=== PATIENT | female | born 1955 | race Caucasian/White ===

== ENCOUNTER 2016-10-26 05:58 | Inpatient (IN) | payer BC ==
[~2016-10-26] VITALS: Ht 172.7 cm; Wt 97.5 kg
[~2016-10-26 05:58] MED LIST: ASPI1TAB69 PO; CELE20TA PO; LOSA50TA PO; MAGN400C PO; MAGN400T2 PO; METF500 PO; METF500T PO; OMEP40CA2 PO; ROSU40 PO; VITA2000 PO
[2016-10-26] MEDS ORDERED: LACTATED RINGER'S 1000 ML IV PRN (06:30)
[2016-10-26] MEDS ORDERED: METOPROLOL TARTRATE 25 MG TAB PO PRN (06:30)
[2016-10-26] MEDS ORDERED: SODIUM CHLORID 0.9% 500 ML IV PRN (06:30)
[2016-10-26] MEDS ORDERED: POVIDONE IODINE 5% (ANTISEPSIS KIT) 4 APPLICATIONS EACH NARE PRN (06:30)
[2016-10-26] MEDS ORDERED: CHLORHEXIDINE GLUCONATE 2 % 1 PACK (2 CLOTHS) TOPICAL PRN (06:30)
[2016-10-26] MEDS ORDERED: INSULIN HUMAN REGULAR 1,000 UNITS/10 ML VIAL SQ PRN (06:30)
[2016-10-26 06:46] VITALS: BP 117/64; PULSE 64; RESP 16; TEMP 98.1; O2SAT 97
[2016-10-26] MEDS ORDERED: ceFAZolin 2 GM PREMIX 50 ML ONE (06:56)
[2016-10-26] MEDS ORDERED: BUPIVACAINE/EPINEPHRINE 0.25% 50 ML VIAL ONE (06:59)
[2016-10-26] MEDS: ceFAZolin 2 GM PREMIX 50 ML IV SCH ×2 (07:03→18:19)
[2016-10-26] MEDS ORDERED: MIDAZOLAM HCL 2 MG/2 ML VIAL ONE (07:29)
[2016-10-26] MEDS ORDERED: FAMOTIDINE 20 MG/2 ML VIAL ONE (07:29)
[2016-10-26] MEDS ORDERED: IOHEXOL 350 MG/ML 50 ML BTL (for RAD DIAG) ONE (08:34)
--- NOTE | 2016-10-26 09:26 | HHI.PR ---
Immediate Post Op Note Procedure Date: Oct 26, 2016 Pre Op Diagnosis: (1) Abdominal pain (2) Nausea & vomiting Post Op Diagnosis: (1) Abdominal pain (2) Nausea & vomiting Surgeon: Cale Solares [facility] Assistant(s): staff Procedure: laparoscopic cholecystectomy with IOC Findings: IOC with air bubble, good filling Complications: none Specimen(s) removed: GB Estimated blood loss: 10ml Anesthesia: General, Local Drains: None Patient to: PACU Patient Condition: Good Cale Solares MD Oct 26, 2016 09:26
--- NOTE | 2016-10-26 09:29 | RADRPT ---
EXAM DATE/TIME: 10/26/2016 08:57 [facility] COMPARISON: CHEST SINGLE AP, July 04, 2016, 17:13. INDICATIONS : Obstruction. FLUORO TIME: 1.2 minutes IMAGE COUNT: 2 MEDICAL HISTORY : None. SURGICAL HISTORY : None. ENCOUNTER: Initial ACUITY: 1 day PAIN SCORE: Non-responsive. LOCATION: Right upper quadrant PROCEDURE: CHOLANGIOGRAM, OPERATIVE 1. Intraoperative cholangiogram. In the operating room, the cystic duct stump was injected and radiographs obtained. The examination demonstrates a punctate stone in the proximal common bile duct. This measures approxi mately 2 mm in size. The ampulla is patent. There is no evidence of extravasation. CONCLUSION: There is a 2 mm stone in the mid aspect of the common duct. Betito Patel MD on October 26, 2016 at 9:26 Board Certified Radiologist. This report was verified electronically.
[2016-10-26] MEDS ORDERED: DO NOT ADM ANY ANTICOAGULANT DRUGS PRN (09:30)
[2016-10-26] MEDS ORDERED: *morphine SULFATE 8 MG/ML PERIprocedure ONLY ONE ×2 (09:34→09:38)
[2016-10-26] MEDS ORDERED: fentaNYL CITRATE 250 MCG/5 ML AMP ONE (09:36)
[2016-10-26] MEDS ORDERED: ACETAMINOPHEN/HYDROcodone 325 MG/5 MG TAB ONE (11:08)
[2016-10-26] MEDS ORDERED: ACETAMINOPHEN/HYDROcodone 325 MG/5 MG TAB PO ONE ×2 (11:15→14:00)
[2016-10-26] MEDS ORDERED: ACETAMINOPHEN 1000 MG/100 ML VIAL IV ONE (12:00)
[2016-10-26] MEDS ORDERED: NEOSTIGMINE 3 MG/3 ML SYR IV ONE ×2 (12:00→13:51)
[2016-10-26] MEDS ORDERED: ePHEDrine/NS 25 MG/5 ML SYR IV ONE (13:50)
[2016-10-26] MEDS ORDERED: PROPOFOL 200 MG/20 ML AMP IV ONE (13:50)
[2016-10-26] MEDS ORDERED: ONDANSETRON HCL 4 MG/2 ML VIAL IV PUSH ONE (13:51)
[2016-10-26] MEDS ORDERED: LACTATED RINGER'S 1000 ML INJ 1,000 ML IV ONE (13:51)
[2016-10-26] MEDS ORDERED: KETOROLAC TROMETHAMINE 60 MG/2 ML (IM) VIAL IM ONE (13:51)
[2016-10-26] MEDS ORDERED: LACTATED RINGER'S 1000 ML INJ 500 ML IV ONE (14:00)
[2016-10-26] MEDS: SODIUM CHLOR 0.9% 1000 ML INJ 1,000 ML IV SCH (14:35)
[2016-10-26] MEDS ORDERED: ACETAMINOPHEN/HYDROcodone 325 MG/5 MG TAB PO PRN (17:45)
[2016-10-26] MEDS: ACETAMINOPHEN/HYDROcodone 325 MG/5 MG TAB PO PRN ×2 (17:50→22:01)
--- NOTE | 2016-10-26 19:40 | HHI.PR ---
Subjective Subjective Notes patient feels better, was feeling weak all week Objective Vitals/I&O Vital Signs Date Time Temp Pulse Resp B/P Pulse Ox O2 Delivery O2 Flow Rate FiO2 10/26/16 18:34 18 10/26/16 16:30 97.9 70 94/59 97 10/26/16 15:35 Room Air 10/26/16 12:00 1 Cardiovascular: Regular Lungs: Clear Abdomen: Non-distended, Post-op tenderness Extremities: No edema, Perfused A/P Assessment and Plan 61yo female s/p lap xander, stable. had some low BP after surgery, felt weak, placed in obs. will check HH in AM before DC. Cale Solares MD Oct 26, 2016 19:40
[2016-10-26] MEDS ORDERED: ZOLPIDEM TARTRATE 5 MG TAB PO PRN (19:45)
[2016-10-26] MEDS ORDERED: SODIUM CHLORIDE 0.9% FLUSH 10 ML FLUSH IV FLUSH PRN (19:45)
[2016-10-26] MEDS ORDERED: ONDANSETRON HCL 4 MG/2 ML VIAL IV PRN (19:45)
[2016-10-26] MEDS ORDERED: Post-op Orders (for Pharmacy) MISC XX ONE (19:45)
[2016-10-26] MEDS ORDERED: diphenhydrAMINE HCL 25 MG CAP PO PRN (19:45)
[2016-10-26 20:00] VITALS: BP 101/56; PULSE 70; RESP 20; TEMP 96.4; O2SAT 95
[2016-10-26] MEDS: SODIUM CHLORIDE 0.9% FLUSH 10 ML FLUSH IV FLUSH SCH (20:12)
[2016-10-27] VITALS (9 sets, daily range): BP systolic 88–129; BP diastolic 50–60; PULSE 66–100; RESP 16–21; TEMP 96.8–98.4; O2SAT 92–99
[2016-10-27] MEDS: SODIUM CHLOR 0.9% 1000 ML INJ 1,000 ML IV SCH ×3 (00:08→20:00)
[2016-10-27] MEDS: ACETAMINOPHEN/HYDROcodone 325 MG/5 MG TAB PO PRN ×4 (04:10→18:31)
[2016-10-27] MEDS: SODIUM CHLORIDE 0.9% FLUSH 10 ML FLUSH IV FLUSH SCH ×2 (08:59→20:41)
--- NOTE | 2016-10-27 09:26 | HHI.PR ---
Subjective Subjective Notes RUQ pain, no other c/o Objective Vitals/I&O Vital Signs Date Time Temp Pulse Resp B/P Pulse Ox O2 Delivery O2 Flow Rate FiO2 10/27/16 05:10 20 10/27/16 04:00 97.0 82 100/55 97 10/26/16 15:35 Room Air 10/26/16 12:00 1 Labs Laboratory Tests Test 10/27/16 05:39 Hemoglobin 7.6 Cardiovascular: Regular Abdomen: Non-distended, Post-op tenderness Extremities: No edema, Perfused A/P Assessment and Plan 61yo female s/p lap xander, VSS. HH low, possible self limited surgical bleed. will follow HH, check CT scan today. will need to stay inpatient. Cale Solares MD Oct 27, 2016 09:26
[2016-10-27] MEDS: HYDROmorphone HCL PF 1 MG/ML VIAL IV PRN ×2 (09:59→20:40)
[2016-10-27] MEDS ORDERED: DIATRIZOATE MEGLUM/DIATRIZOATE SOD 9 ML CUP PO ONE (10:00)
--- NOTE | 2016-10-27 12:21 | RADRPT ---
EXAM DATE/TIME: 10/27/2016 11:57 [facility] COMPARISON: No previous studies available for comparison. INDICATIONS : Increased right upper quadrant pain following cholecystectomy. ORAL CONTRAST: Prescribed oral contrast ingested. RADIATION DOSE: 15.29 CTDIvol (mGy) MEDICAL HISTORY : Chronic obstructive pulmonary disease. Carcinoma, lung. Gastroesophageal reflux disease. SURGICAL HISTORY : Cholecystectomy. Fusion, lumbar. ENCOUNTER: Initial ACUITY: 1 day PAIN SCALE: 6/10 LOCATION: Right upper quadrant TECHNIQUE: Volumetric scanning of the abdomen and pelvis was performed. Using automated exposure control and adjustment of the mA and/or kV according to patient size, radiation dose was kept as low as reasonably achievable to obtain optimal diagnostic quality images. FINDINGS: LOWER LUNGS: There are new small bilateral pleural effusions and left basilar atelectasis/consoli dation. LIVER: The liver demonstrates normal morphology without evidence of biliary air. The patient is s tatus post recent cholecystectomy. There is fluid surrounding the right lobe of the liver displacing the right hemidiaphragm superiorly. Fluid tracks along the inferior right lobe and down the right par acolic gutter pooling within the dependent portion of the pelvis. Additional fluid is identified with in the lower left paracolic gutter. SPLEEN: Normal size without lesion. PANCREAS: Within normal limits. KIDNEYS: Normal in size and shape. There is no mass, stone, or hydronephrosis. ADRENAL GLANDS: Within normal limits. VASCULAR: There is no aortic aneurysm. Atherosclerosis. BOWEL/MESENTERY: Sigmoid diverticulosis. Stomach and small bowel are unremarkable. ABDOMINAL WALL: Intact. There are areas of subcutaneous air overlying the left midlung pelvis and right flank likely site of recent ports. RETROPERITONEUM: There is no lymphadenopathy. BLADDER: No wall thickening or mass. REPRODUCTIVE: Within normal limits. INGUINAL: There is no lymphadenopathy or hernia. MUSCULOSKELETAL: Within normal limits for patient age. CONCLUSION: Significantly abnormal exam with a large amount of free fluid identified within the a bdomen, pelvis and surrounding the right lobe of the liver with new small pleural effusions and left basilar airspace consolidation. Given the patient's recent cholecystectomy this is concerning for a b ile leak. Delicia Garber MD on October 27, 2016 at 12:14 Board Certified Radiologist. This report was verified electronically.
[2016-10-27] MEDS ORDERED: SODIUM CHLORID 0.9% 500 ML INJ 500 ML IV ONE (13:00)
[2016-10-27] MEDS ORDERED: SODIUM CHLOR 0.9% 250 ML INJ 250 ML IV ONE (13:15)
[2016-10-27] MEDS ORDERED: PHYTONADIONE 10 MG/ML VIAL SQ ONE (13:15)
[2016-10-27 14:06] LABS: HEMATOCRIT 21.4 % (35.0-46.0); MEAN CELL VOLUME 90.7 FL (80.0-100.0); MEAN CORPUSCULAR HEMOGLOBIN 31.5 PG (27.0-34.0); MEAN CORPUSCULAR HGB CONC 34.7 % (32.0-36.0); PLATELET COUNT 155 TH/MM3 (150-450); RED BLOOD COUNT 2.36 MIL/MM3 (4.00-5.30); RED CELL DISTRIBUTION WIDTH 14.8 % (11.6-17.2); REVIEW FLAG FINAL; WHITE BLOOD COUNT 7.9 TH/MM3 (4.0-11.0)
[2016-10-27 14:14] LABS: INTERNATIONAL NORMALIZED RATIO 0.9 RATIO; PROTHROMBIN TIME - PATIENT 10.3 SEC (9.8-11.6)
[2016-10-27 16:13] LABS: BICARBONATE 28.3 MEQ/L (21.0-32.0); POTASSIUM 4.1 MEQ/L (3.5-5.1)
[2016-10-28] VITALS: BP 112/60; PULSE 90; RESP 20; TEMP 98.3; O2SAT 97
[2016-10-28] MEDS: ACETAMINOPHEN/HYDROcodone 325 MG/5 MG TAB PO PRN ×5 (00:35→19:38)
[2016-10-28 04:00] VITALS: BP 118/50; PULSE 88; RESP 20; TEMP 98.9; O2SAT 95
[2016-10-28] MEDS: SODIUM CHLOR 0.9% 1000 ML INJ 1,000 ML IV SCH ×2 (04:21→19:39)
[2016-10-28 06:03] LABS: HEMATOCRIT 23.5 % (35.0-46.0); MEAN CELL VOLUME 87.2 FL (80.0-100.0); MEAN CORPUSCULAR HEMOGLOBIN 30.6 PG (27.0-34.0); MEAN CORPUSCULAR HGB CONC 35.1 % (32.0-36.0); PLATELET COUNT 126 TH/MM3 (150-450); RED BLOOD COUNT 2.69 MIL/MM3 (4.00-5.30); RED CELL DISTRIBUTION WIDTH 15.8 % (11.6-17.2); REVIEW FLAG FINAL; WHITE BLOOD COUNT 6.4 TH/MM3 (4.0-11.0)
[2016-10-28 06:08] LABS: ALKALINE PHOSPHATASE 74 U/L (45-117); ALT (GPT) 14 U/L (10-53); ANION GAP 6 MEQ/L (5-15); AST (GOT) 16 U/L (15-37); BICARBONATE 29.3 MEQ/L (21.0-32.0); BLOOD UREA NITROGEN 11 MG/DL (7-18); CHLORIDE 105 MEQ/L (98-107); GLOMERULAR FILTRATION RATE 129 ML/MIN (>89); POTASSIUM 3.9 MEQ/L (3.5-5.1); SODIUM (NA) 140 MEQ/L (136-145); TOTAL BILIRUBIN ADULT 0.5 MG/DL (0.2-1.0)
[2016-10-28] MEDS: SODIUM CHLORIDE 0.9% FLUSH 10 ML FLUSH IV FLUSH SCH ×2 (07:56→21:00)
--- NOTE | 2016-10-28 07:58 | HHI.PR ---
Subjective Subjective Notes RUQ pain, stable over night, tolerating some clears Objective Vitals/I&O Vital Signs Date Time Temp Pulse Resp B/P Pulse Ox O2 Delivery O2 Flow Rate FiO2 10/28/16 04:00 98.9 88 20 118/50 95 10/26/16 15:35 Room Air 10/26/16 12:00 1 Labs Laboratory Tests Test 10/27/16 10/27/16 10/27/16 10/28/16 13:30 13:44 14:49 05:13 White Blood Count 7.9 6.4 Red Blood Count 2.36 2.69 Hemoglobin 7.4 8.2 Hematocrit 21.4 23.5 Mean Corpuscular Volume 90.7 87.2 Mean Corpuscular Hemoglobin 31.5 30.6 Mean Corpuscular Hemoglobin 34.7 35.1 Concent Red Cell Distribution Width 14.8 15.8 Platelet Count 155 126 Mean Platelet Volume 9.0 9.0 Prothrombin Time 10.3 Prothromb Time International 0.9 Ratio Blood Type AB POSITIVE AB POSITIVE Antibody Screen NEGATIVE Crossmatch Leukocyte-Reduced Red Blood Cells Blood Bank Comment Sodium Level 139 140 Potassium Level 4.1 3.9 Chloride Level 105 105 Carbon Dioxide Level 28.3 29.3 Anion Gap 6 6 Blood Urea Nitrogen 14 11 Creatinine 0.69 0.49 Estimat Glomerular Filtration 87 129 Rate Random Glucose 112 103 Calcium Level 7.7 8.2 Total Bilirubin 0.5 Aspartate Amino Transf 16 (AST/SGOT) Alanine Aminotransferase 14 (ALT/SGPT) Alkaline Phosphatase 74 Total Protein 5.4 Albumin 2.7 Cardiovascular: Regular Lungs: Clear Abdomen: Non-distended, Post-op tenderness Extremities: No edema, Perfused, SCD's on A/P Assessment and Plan 61yo female s/p lap xander, stable. ABLA, HH stable, VSS, recheck in AM CT with hemoperitoneum, moderate, if has significant ileus may need washout laparoscopically, d/w patient will continue conservative management, pain control Cale Solares MD Oct 28, 2016 07:58
[2016-10-28 08:00] VITALS: BP 111/58; PULSE 76; RESP 16; TEMP 98.7; O2SAT 97
[2016-10-28 12:00] VITALS: BP 109/67; PULSE 77; RESP 16; TEMP 97.4; O2SAT 97
[2016-10-28 16:00] VITALS: BP 114/62; PULSE 69; RESP 16; TEMP 97.4; O2SAT 98
[2016-10-28 20:00] VITALS: BP 142/69; PULSE 75; RESP 20; TEMP 98; O2SAT 98
[2016-10-29 00:14] VITALS: BP 95/52; PULSE 95; RESP 19; TEMP 97.5; O2SAT 96
[2016-10-29 01:00] VITALS: BP 122/64; PULSE 66
[2016-10-29] MEDS: ACETAMINOPHEN/HYDROcodone 325 MG/5 MG TAB PO PRN ×5 (04:27→22:35)
[2016-10-29 05:28] LABS: HEMATOCRIT 25.1 % (35.0-46.0); MEAN CELL VOLUME 88.9 FL (80.0-100.0); MEAN CORPUSCULAR HEMOGLOBIN 29.8 PG (27.0-34.0); MEAN CORPUSCULAR HGB CONC 33.5 % (32.0-36.0); PLATELET COUNT 132 TH/MM3 (150-450); RED BLOOD COUNT 2.82 MIL/MM3 (4.00-5.30); RED CELL DISTRIBUTION WIDTH 15.8 % (11.6-17.2); REVIEW FLAG FINAL; WHITE BLOOD COUNT 5.7 TH/MM3 (4.0-11.0)
[2016-10-29] MEDS: SODIUM CHLORIDE 0.9% FLUSH 10 ML FLUSH IV FLUSH SCH ×2 (07:41→21:00)
[2016-10-29 08:00] VITALS: BP 134/73; PULSE 76; RESP 17; TEMP 96.7; O2SAT 96
--- NOTE | 2016-10-29 09:01 | MP ---
cc: KHUSHI GRIMES DATE OF SURGERY 10/26/2016 PREOPERATIVE DIAGNOSIS Right upper quadrant pain, possible sphincter of Oddi dysfunction. POSTOPERATIVE DIAGNOSIS Right upper quadrant pain, possible sphincter of Oddi dysfunction. PROCEDURE 1. Laparoscopic cholecystectomy. 2. Intraoperative cholangiogram. SURGEON MD Beck [facility] Staff ANESTHESIA General. BLOOD LOSS Less than 10 cc. COMPLICATIONS None. FINDINGS Possible small air bubble in the common duct with good filling of the duodenum from IOC and the cystic duct. Minimal filling of the right and left hepatic ducts possibly due to compression from the IOC catheter and retractor. INDICATIONS FOR PROCEDURE The patient is a 61-year-old female who has had several months of atypical right upper quadrant and epigastric pain. The patient underwent extensive workup by Dr. Mullins and was noted to have some decreased biliary drainage on her HIDA scan. Discussed with the patient about further workup and treatment. I did recommend cholecystectomy as the patient's symptoms were likely due to cholecystitis, chronic, as well as intraoperative cholangiogram to evaluate the patient's biliary system. The risks, benefits and alternatives were explained to the patient prior to procedure and the patient agreed to undergo the procedure. PROCEDURE After informed was obtained, the patient was taken to the operating room, placed in supine position, under general endotracheal anesthesia. The patient's abdomen was prepped and draped in sterile fashion. Time-out was performed. The abdomen was entered through an OptiView direct entry technique just to the left of the umbilicus. We insufflated the abdomen with CO2 and then surveyed the abdomen with a 5-mm, 30-degree camera and there no evidence of any complication from our entry. Then placed a 10-mm port in the subxiphoid position and two 5-mm ports in the right upper quadrant under visualization of the laparoscope. Local anesthetic was used at all port sites. We were then able to grasp the gallbladder at the fundus and retract this upward. We took down multiple layers of inflammatory adhesions from the duodenum of the omentum consistent with chronic cholecystitis. No gallstones were noted. We then dissected the triangle of Calot quite easily with the [place] dissectors as well with hook electrocautery. Critical view of safety was obtained. At this point in time we turned attention towards our IOC. We doubly clipped the cystic artery proximally and singly clipped just distal and divided this with laparoscopic Endoshears to decrease the chance of us injuring an artery during the IOC. We then were able to place a clip proximally on the infundibulum of the gallbladder and make a ductotomy in the cystic duct. We had placed an Michaels IOC catheter into the ductotomy and then placed a ratcheting grasper to hold this in position and to decrease leaking around the catheter. We then injected this with saline. There was no leak. We then performed an IOC, two separate views which showed excellent immediate drainage into the duodenum. There was poor visualization of the right and left ducts. Again, this appeared possibly due to compression due to the IOC catheter. There was also what appeared to be possibly a small air bubble into the common bile duct as well. At this point in time I felt there was no further intervention needed at this time and we did save these images for review later as well as by radiology. We then placed two clips proximal to our ductotomy and cystic duct and completed division of the cystic duct at our ductotomy site. Then the gallbladder was removed from the gallbladder fossa with the hook electrocautery and removed from the abdomen with the EndoCatch bag through the subxiphoid port. At this point in time we used the suction loan interviewer to suck out the few blood clots that clots. There was no bile leakage. All succinate was clear and there was no evidence of any bleeding, bile leak or any complication. We then removed the ports under visualization of the laparoscope and expressed pneumoperitoneum. We closed the subxiphoid 10 port with a [id number] 0 Vicryl suture and closed the skin with 4-0 Monocryl and Dermabond. The patient was discontinued from anesthesia and taken to the PACU in stable condition. The patient tolerated the procedure well. No apparent complications. All counts were correct. I was present and scrubbed for the entire procedure. Khushi Grimes MD AWG/SSB /9:37 AM /8:41 AM
[2016-10-29 12:00] VITALS: BP 128/60; PULSE 81; RESP 18; TEMP 98.3; O2SAT 92
[2016-10-29] MEDS ORDERED: FUROSEMIDE 20 MG TAB PO ONE (14:15)
[2016-10-29 16:00] VITALS: BP 137/75; PULSE 72; RESP 17; TEMP 98.4; O2SAT 98
--- NOTE | 2016-10-29 17:25 | HHI.PR ---
Subjective Subjective Notes "I feel swollen" Objective Vitals/I&O Vital Signs Date Time Temp Pulse Resp B/P Pulse Ox O2 Delivery O2 Flow Rate FiO2 10/29/16 16:00 98.4 72 17 137/75 98 10/26/16 15:35 Room Air 10/26/16 12:00 1 Labs Laboratory Tests Test 10/29/16 04:25 White Blood Count 5.7 Red Blood Count 2.82 Hemoglobin 8.4 Hematocrit 25.1 Mean Corpuscular Volume 88.9 Mean Corpuscular Hemoglobin 29.8 Mean Corpuscular Hemoglobin 33.5 Concent Red Cell Distribution Width 15.8 Platelet Count 132 Mean Platelet Volume 9.1 Cardiovascular: Regular Lungs: Clear Abdomen: Other (lap sites c/d/i; ), Post-op tenderness Extremities: Other (generalized dependent edema in BLE ) A/P Assessment and Plan 61 year old female POD3 lap xander; with acute blood loss anemia -S/p RBCs; Hmg 8.4 today (stable) -VSS -CT with hemoperitoneum, moderate,stable; will continue to monitor -Lasix PO x 1 dose today -DC IVF -Regular diet -Pain control -If pain controlled and breathing stable will plan to DC tomorrow AM Attending Statement The exam, history, and the medical decision-making described in the above note were completed with the assistance of the mid-level provider. I reviewed and agree with the findings presented. I attest that I had a [id number] encounter with the patient on the same day, and personally performed and documented my assessment and findings in the medical record. abdominal exam stable, HH stable, VSS, continue non-operative mgmt for bleed Stephanie Rand Oct 29, 2016 17:25 Cale Solares MD Nov 02, 2016 09:05
[2016-10-29 20:00] VITALS: BP 118/59; PULSE 76; RESP 20; TEMP 98.1; O2SAT 99
[2016-10-30] VITALS (7 sets, daily range): BP systolic 130–153; BP diastolic 68–92; PULSE 68–89; RESP 18–20; TEMP 97.4–99.2; O2SAT 96–100
[2016-10-30] MEDS: ACETAMINOPHEN/HYDROcodone 325 MG/5 MG TAB PO PRN ×4 (05:23→21:04)
[2016-10-30] MEDS ORDERED: FUROSEMIDE 20 MG TAB PO ONE (08:15)
[2016-10-30] MEDS: SODIUM CHLORIDE 0.9% FLUSH 10 ML FLUSH IV FLUSH SCH ×2 (08:43→21:04)
[2016-10-30 11:40] LABS: AUTOMATED NEUTROPHIL # 3.9 TH/MM3 (1.8-7.7); BASOPHIL % 0.4 % (0.0-2.0); EOSINOPHIL # 0.1 TH/MM3 (0-0.4); EOSINOPHIL % 1.7 % (0.0-4.0); HEMO FLAGS DIFF FINAL; LYMPH % 16.3 % (9.0-44.0); LYMPHOCYTE # 0.9 TH/MM3 (1.0-4.8); MEAN CELL VOLUME 88.1 FL (80.0-100.0); MONO % 9.8 % (0.0-8.0); NEUT % 71.8 % (16.0-70.0); PLATELET COUNT 161 TH/MM3 (150-450); RED BLOOD COUNT 3.18 MIL/MM3 (4.00-5.30); RED CELL DISTRIBUTION WIDTH 15.4 % (11.6-17.2); WHITE BLOOD COUNT 5.4 TH/MM3 (4.0-11.0)
[2016-10-30] MEDS ORDERED: MAGNESIUM HYDROXIDE SUSP 30 ML CUP PO ONE (13:30)
[2016-10-30] MEDS: LOSARTAN 50 MG TAB PO SCH (14:12)
[2016-10-30] MEDS: RESP: ALBUTEROL 1.25 MG/3 ML NEB (SCH) NEB ×2 (14:56→21:06)
--- NOTE | 2016-10-30 17:36 | HHI.PR ---
Subjective Subjective Notes C/o abdominal pain but no worse than yesterday Objective Vitals/I&O Vital Signs Date Time Temp Pulse Resp B/P Pulse Ox O2 Delivery O2 Flow Rate FiO2 10/30/16 16:49 18 10/30/16 16:00 99.2 68 149/92 100 10/30/16 14:50 Nasal Cannula 2.00 Labs Laboratory Tests Test 10/30/16 11:23 White Blood Count 5.4 Red Blood Count 3.18 Hemoglobin 9.5 Hematocrit 28.0 Mean Corpuscular Volume 88.1 Mean Corpuscular Hemoglobin 30.0 Mean Corpuscular Hemoglobin 34.0 Concent Red Cell Distribution Width 15.4 Platelet Count 161 Mean Platelet Volume 8.6 Neutrophils (%) (Auto) 71.8 Lymphocytes (%) (Auto) 16.3 Monocytes (%) (Auto) 9.8 Eosinophils (%) (Auto) 1.7 Basophils (%) (Auto) 0.4 Neutrophils # (Auto) 3.9 Lymphocytes # (Auto) 0.9 Monocytes # (Auto) 0.5 Eosinophils # (Auto) 0.1 Basophils # (Auto) 0.0 CBC Comment DIFF FINAL Differential Comment Cardiovascular: Regular Lungs: Clear Abdomen: Other (discomfort in RUQ; lap sites c/d/i ) Extremities: Other (BLE edema ) A/P Assessment and Plan 61 year old female POD4 lap xander; with acute blood loss anemia -S/p RBCs; Hmg 9.5 today (stable) -VSS -Restarted home meds -CT with hemoperitoneum, moderate,stable; will continue to monitor -Lasix PO x 1 dose today -Regular diet -Pain control -If pain controlled and breathing stable will plan to DC tomorrow AM Attending Statement The exam, history, and the medical decision-making described in the above note were completed with the assistance of the mid-level provider. I reviewed and agree with the findings presented. I attest that I had a [id number] encounter with the patient on the same day, and personally performed and documented my assessment and findings in the medical record. HH stable, mild fluid overload, will Stephanie Almaraz Oct 30, 2016 17:36 Cale Solares MD Nov 02, 2016 09:11
[2016-10-31] VITALS (7 sets, daily range): BP systolic 105–138; BP diastolic 59–70; PULSE 69–80; RESP 14–20; TEMP 97.1–99.3; O2SAT 93–98
[2016-10-31] MEDS: ACETAMINOPHEN/HYDROcodone 325 MG/5 MG TAB PO PRN ×4 (05:47→23:27)
[2016-10-31] MEDS: RESP: ALBUTEROL 1.25 MG/3 ML NEB (SCH) NEB ×3 (08:07→20:12)
[2016-10-31] MEDS: SODIUM CHLORIDE 0.9% FLUSH 10 ML FLUSH IV FLUSH SCH ×2 (08:13→20:37)
[2016-10-31] MEDS: LOSARTAN 50 MG TAB PO SCH (08:13)
[2016-10-31] MEDS ORDERED: FUROSEMIDE 40 MG TAB PO ONE (14:00)
--- NOTE | 2016-10-31 17:31 | HHI.PR ---
Subjective Subjective Notes Up to chair Pain somewhat improved today Breathing better today Objective Vitals/I&O Vital Signs Date Time Temp Pulse Resp B/P Pulse Ox O2 Delivery O2 Flow Rate FiO2 10/31/16 11:08 18 10/31/16 08:06 98 21 10/31/16 08:00 97.5 75 121/70 10/30/16 20:16 Nasal Cannula 2.00 Cardiovascular: Regular Lungs: Clear Abdomen: Other (generalized tenderness--improved from yesterday's exam; lap sites c/d/i ) Extremities: Other (BLE edema ) A/P Assessment and Plan 61 year old female POD5 lap xander; with acute blood loss anemia -Hb stable -VSS -CT with hemoperitoneum, moderate,stable; will continue to monitor -Lasix 40mg PO x 1 dose today -Regular diet -Pain control -If pain controlled and breathing stable will plan to DC tomorrow AM Attending Note - Dr. Fields Abdomen tender, but not changed Hb 9.5 The exam, history, and the medical decision-making described in the above note were completed with the assistance of the mid-level provider. I reviewed and agree with the findings presented. I attest that I had a [id number] encounter with the patient on the same day, and personally performed and documented my assessment and findings in the medical record. Stephanie Rand Oct 31, 2016 17:31 Miguel Fields MD Nov 14, 2016 11:52
[2016-11-01] VITALS: BP 126/61; PULSE 73; RESP 16; TEMP 97.9; O2SAT 94
[2016-11-01] MEDS: ACETAMINOPHEN/HYDROcodone 325 MG/5 MG TAB PO PRN ×2 (05:41→11:22)
[2016-11-01 08:00] VITALS: BP 137/73; PULSE 63; RESP 17; TEMP 96.5; O2SAT 99
[2016-11-01] MEDS: RESP: ALBUTEROL 1.25 MG/3 ML NEB (SCH) NEB (08:16)
[2016-11-01] MEDS: LOSARTAN 50 MG TAB PO SCH (08:28)
[2016-11-01] MEDS: SODIUM CHLORIDE 0.9% FLUSH 10 ML FLUSH IV FLUSH SCH (08:29)
[2016-11-01] MEDS ORDERED: NORC5TAB PO (10:17)
--- NOTE | 2016-11-06 14:01 | HHI.DS ---
Discharge Summary Admission Date Oct 27, 2016 at 00:00 Discharge Date: Nov 01, 2016 Admitting Diagnosis Brief History 61 year old female POD5 lap xander; with acute blood loss anemia PE at Discharge Alert and awake Cardio: RRR Resp: CTAB Abd: minimally tender in RUQ; lap sites c/d/i Hospital Course This is a 61 year old female s/p lap xander; with acute blood loss anemia. The patient had a CT that showed hemoperitoneum which was stable. Her pain was controlled using oral pain medications. She was able to tolerate a diet. Her oxygen was weaned to only use a t night (baseline prior to surgery). She will follow up in the office in about one week. Pt Condition on Discharge: Good Discharge Disposition: Discharge Home Discharge Instructions DIET: Follow Instructions for: Low Fat Diet Activities you can perform: See Additionl Instruction Activities to Avoid: Lifting/Bending Other Activity Instructions: NO LIFTING MORE THAN 10 POUNDS Stephanie Rand Nov 06, 2016 14:01
[2016-11-23] MEDS ORDERED: ROSU1TAB8 PO (14:13)
[2016-12-24] MEDS ORDERED: ASPI81CH CHEW (14:50)
[2017-01-08] MEDS ORDERED: CELE20TA PO (16:19)
[2017-01-18] MEDS ORDERED: LOSA50TA PO (13:32)
== END 2016-11-01 13:03 | disposition home or self-care (01) | DRG 417 ==
LOC: HSDC 05:58 → N07A 13:47 → OBSVTOIN 10-27
PROVIDERS: ADMIT Surgery; ATTEND Surgery
PROC: 0FN44ZZ Release Gallbladder, Percutaneous Endoscopic Approach (ICD-10-PCS; 2016-10-26)
PROC: BF131ZZ Fluoroscopy of Gallbladder and Bile Ducts using Low Osmolar Contrast (ICD-10-PCS; 2016-10-26)
PROC: 0FT44ZZ Resection of Gallbladder, Percutaneous Endoscopic Approach (ICD-10-PCS; principal; 2016-10-26 08:06)
PROC: 30233K1 Transfusion of Nonautologous Frozen Plasma into Peripheral Vein, Percutaneous Approach (ICD-10-PCS; 2016-10-27)
PROC: 30233N1 Transfusion of Nonautologous Red Blood Cells into Peripheral Vein, Percutaneous Approach (ICD-10-PCS; 2016-10-27)
DX: K81.1 Chronic cholecystitis (principal); K66.1 Hemoperitoneum; D62 Acute posthemorrhagic anemia; E11.40 Type 2 diabetes mellitus with diabetic neuropathy, unspecified; J44.9 Chronic obstructive pulmonary disease, unspecified; E87.70 Fluid overload, unspecified; Z79.84 Long term (current) use of oral hypoglycemic drugs; K82.8 Other specified diseases of gallbladder; Z85.118 Personal history of other malignant neoplasm of bronchus and lung; Z90.2 Acquired absence of lung [part of]; I10 Essential (primary) hypertension; E78.5 Hyperlipidemia, unspecified; Z87.891 Personal history of nicotine dependence; J45.909 Unspecified asthma, uncomplicated; K21.9 Gastro-esophageal reflux disease without esophagitis
CPT/HCPCS: 36430; 74176; 74300; 80048; 80053; 85018; 85025; 85027; 85610; 86850; 86900; 86901; 86920; 86927; 88304; 94150; 94640; 94664; G0378; J0131; J0690; J1170; J1885; J2250; J2270; J2405; J2710; J3010; J3430; J7030; J7040; J7120; J7613; P9016; P9017; Q9963; Q9967

== ENCOUNTER → 2016-12-25 | Outpatient (CLI) | payer BC ==
[~2016-12-25] VITALS: Ht 172.7 cm; Wt 88.2 kg
[~2016-12-25] MED LIST changes: -ASPI1TAB69 PO; +ASPI81CH CHEW; +CHLORHEXIDINE GLUCONATE 2 % 1 PACK (2 CLOTHS) TOPICAL PRN; +INSULIN HUMAN REGULAR 1,000 UNITS/10 ML VIAL SQ PRN; +IOHEXOL 350 MG/ML 100 ML BTL (for RAD DIAG) OTHER ONE; +LACTATED RINGER'S 1000 ML IV PRN; -MAGN400T2 PO; -METF500 PO; -METF500T PO; +METOPROLOL TARTRATE 25 MG TAB PO PRN; +MORPHINE SULFATE 4 MG/ML INJ IV ONE; +POVIDONE IODINE 5% (ANTISEPSIS KIT) 4 APPLICATIONS EACH NARE PRN; +PROPOFOL 200 MG/20 ML AMP IV ONE; +ROSU1TAB8 PO; -ROSU40 PO; +SODIUM CHLORID 0.9% 500 ML IV PRN
[2016-12-25 08:40] VITALS: BP 134/86; PULSE 64; RESP 18; TEMP 98.3; O2SAT 96
--- NOTE | 2016-12-25 10:30 | GIPROC ---
[facility] [address] [facility]. [facility] [place], [address] ERCP PROCEDURE REPORT EXAM DATE: 12/25/2016 PATIENT NAME: Soni Rodriguez MR #: [id number] BIRTHDATE: 1955 ATTENDING: Dillno Quinn MD ORDER #: [id number] READING EFFICIENCY COURSE DIRECTOR: Shane Moe Hogan, Darren, and Micah Vera STATUS: outpatient INDICATIONS: The patient is a 61 yr old female here for an ERCP due to suspected or rule out sphincter dysfunction/spasm and suspected or rule out bile duct stones PROCEDURE PERFORMED: ERCP, diagnostic MEDICATIONS: Per Anesthesia and None. CONSENT: The patient understands the risks and benefits of the procedure and understands that these risks include, but are not limited to: sedation, allergic reaction, infection, perforation and/or bleeding. Alternative means of evaluation and treatment include, among others: physical exam, x-rays, and/or surgical intervention. The patient elects to proceed with this endoscopic procedure. medical equipment was checked for proper function. Hand hygiene and appropriate measures for infection prevention was taken. After the risks, benefits and alternatives of the procedure were thoroughly explained, Informed was verified, confirmed and timeout was successfully executed by the treatment team. With the patient in left semi-prone position, medications were administered intravenously.The Pentax [id number] was passed from the mouth into the esophagus and further advanced from the esophagus into the stomach. From stomach scope was directed to the second portion of the duodenum. Major papilla was aligned with the duodenoscope. The scope position was confirmed fluoroscopically. Rest of the findings/therapeutics are given below. The scope was then completely withdrawn from the patient and the procedure completed. The pulse, BP, and O2 saturation were monitored and documented by the physician and the nursing staff throughout the entire procedure. The patient was cared for as planned according to standard protocol. The patient was then discharged to recovery in stable condition and with appropriate post procedure care. The ampulla was located the second portion of the duodenum. The ampulla appeared smaller than normal. Failed Cannulation. ADVERSE EVENT: There were no complications. IMPRESSIONS: 1. Ampulla appeared smaller than normal 2. Failed Cannulation RECOMMENDATIONS: Endoscopic Ultrasound with possible repeat ERCP accordingly. REPEAT EXAM: Return 2 weeks Upper endoscopic ultrasound Dillon Quinn MD eSigned: Dillon Quinn MD 12/25/2016 10:30 AM cc:
[2016-12-25 11:10] VITALS: BP 138/80; PULSE 63; RESP 16; O2SAT 91
== END ==
LOC: HSDC 07:59
PROVIDERS: ATTEND Specialist
DX: R10.811 Right upper quadrant abdominal tenderness (principal); R19.7 Diarrhea, unspecified; K82.8 Other specified diseases of gallbladder
CPT/HCPCS: 00740; 43260; 76000; C1769; J2270; J3010; J7120; Q9967

== ENCOUNTER → 2017-01-02 | Outpatient (CLI) | payer BC ==
[~2017-01-02] VITALS: Ht 172.7 cm; Wt 88.3 kg
[~2017-01-02] MED LIST changes: +*RESP: ALBUTEROL 2.5 MG/3 ML NEB (PRN) PERIprocedural Use ONLY NEB ONE; +DO NOT ADM ANY ANTICOAGULANT DRUGS PRN; +FLUMAZENIL 0.5 MG/5 ML VIAL IV PRN; -IOHEXOL 350 MG/ML 100 ML BTL (for RAD DIAG) OTHER ONE; -MORPHINE SULFATE 4 MG/ML INJ IV ONE; +NALOXONE HCL 0.4 MG/ML AMP IV PRN; +ONDANSETRON HCL 4 MG/2 ML VIAL IV PUSH ONE
[2017-01-02 13:19] VITALS: BP 131/87; PULSE 71; RESP 18; TEMP 97.7; O2SAT 97
--- NOTE | 2017-01-02 16:21 | PD.PROCEDR ---
GI Procedure PROCEDURE PERFORMED EUS INDICATION FOR PROCEDURE Possible choledocholithiasis complaints of abdominal pain PROCEDURE: The procedure, risks and benefits were discussed with Ms. Rodriguez and informed consent was obtained. Anesthesia sedated her with Diprivan. She was placed in the left lateral decubitus position. EUS: The Pentax videoscope was introduced through the oropharynx and advanced to the second portion of the duodenum. FINDINGS: The pancreas appeared to be unremarkable from head to tail with a normal pancreatic duct The common bile duct was carefully evaluated from [id number] and it appeared to be unremarkable and within normal limits with no filling defects No lymphadenopathy No gallbladder seen ESTIMATED BLOOD LOSS: None SPECIMENS REMOVED: None COMPLICATIONS: None IMPRESSION: Normal EUS of the biliary tree and the pancreas PLAN: Follow-up in clinic as needed Consider surgical evaluation for recurrences or worsening of right upper quadrant pain Low-fat diet Rodrigo Fernando MD Jan 02, 2017 16:21
[2017-01-02 17:21] VITALS: BP 97/54; PULSE 78; RESP 16; O2SAT 97
== END ==
LOC: HEND 12:49
PROVIDERS: ATTEND Internal Medicine Gastroenterology
DX: R10.11 Right upper quadrant pain (principal)
CPT/HCPCS: 00740; 43259; 94664; J2405; J3010; J7120; J7613